=== PATIENT | female | born 1980 | race Caucasian/White ===

== ENCOUNTER 2023-02-07 15:50 | Emergency (ER) | payer BC, SELFPAY ==
[2023-02-07 17:01] VITALS: BP 124/77; PULSE 67; RESP 18; TEMP 36.3; O2SAT 100; BMI 21.0
--- NOTE | 2023-02-07 17:40 | ED.GENADULT ---
HPI - General Adult General Time Seen by Provider: 17:40 Date Seen: 02/07/23 Chief complaint: Unspecified Complaint, Adult Stated complaint: Possible bat bite, needs rabies vaccination Time Seen by Provider: 02/07/23 17:40 Source: patient, RN notes reviewed and old records reviewed Mode of arrival: ambulatory Limitations: no limitations History of Present Illness HPI narrative: Sailaja is a very pleasant 42-year-old female previously healthy with no current who comes to the emergency room after having been exposed to bats. Patient states that she woke this morning and she had 2 bat flying around in her room. She notes that she had no known bite and has not found any unusual puncture mcclain on her. She however notes that everything online states she should be vaccinated. Related Data Allergies Allergy/AdvReac Type Severity Reaction Status Date / Time Penicillins Allergy Verified 02/07/23 17:01 Sulfa (Sulfonamide Allergy Verified 02/07/23 17:01 Antibiotics) Exam Narrative: Exam Narrative: Very pleasant well-spoken female in no acute distress. No respiratory distress. Const: Vital Signs, click to edit/add: Vital Signs - 24 hr 02/07/23 17:01 Temperature 97.4 F L Pulse Rate [Pulse Oximeter] 67 Respiratory Rate 18 Blood Pressure [Ri ght Upper Arm] 124/77 Pulse Oximetry 100 Oxygen Delivery Me thod Room Air Documenting provider has reviewed patient's vital signs: yes Course Course Hospital Course: At this time do speak with ID specialist from the State who does agree patient will need to be vaccinated. Vital Signs Vital signs: Initial Vital Signs Temperature 97.4 F L 02/07/23 17:01 Temperature Source Temporal Artery Scan 02/07/23 17:01 Pulse Rate 67 02/07/23 17:01 Pulse Rhythm Regular 02/07/23 17:01 Respiratory Rate 18 02/07/23 17:01 Blood Pressure 124/77 02/07/23 17:01 Blood Pressure Mean 92 02/07/23 17:01 Blood Pressure Position Sitting 02/07/23 17:01 Pulse Oximetry 100 02/07/23 17:01 Oxygen Delivery Method Room Air 02/07/23 17:01 Vital Signs Temperature 97.4 F L 02/07/23 17:01 Pulse Rate 67 02/07/23 17:01 Respiratory Rate 18 02/07/23 17:01 Blood Pressure 124/77 02/07/23 17:01 Pulse Oximetry 100 02/07/23 17:01 Oxygen Delivery Method Room Air 02/07/23 17:01 Temperature 97.4 F L 02/07/23 17:01 Pulse Rate 67 02/07/23 17:01 Respiratory Rate 18 02/07/23 17:01 Blood Pressure 124/77 02/07/23 17:01 Pulse Oximetry 100 02/07/23 17:01 Oxygen Delivery Method Room Air 02/07/23 17:01 Medical Decision Making MDM Narrative Medical decision making narrative: 1. Bat exposure without known bite-at this time patient will be treated with rabies IG as well as the vaccine. Today's day 0 she will need to return on day 3, 7 and 14 for vaccination. 2. Disposition home at this time. Return for worsening symptoms. Discharge Plan Discharge Clinical Impression: Exposure to bat without known bite Patient Disposition: Home, Self-Care Condition: Unchanged Additional Instructions: Today's consider days 0. You received both rabies immunoglobulin as well as the vaccine today. You will need to return on the following schedule: Day 3-February 10 Day 7 -February 14 Day 14-February 21 Follow Up/Referrals: Generic,Amb Provider [Staff Physician] - Stand Alone Forms: MyHealth Info Instructions
[2023-02-07] MEDS: RABIES IMMUNE GLOBULIN 150 UNIT/ML INJ 1215 UNIT INFILTRATI (19:04)
== END 2023-02-07 19:00 | disposition home or self-care (01) ==
PROVIDERS: Emergency Provider Family Medicine
DX: Z20.3 Contact with and (suspected) exposure to rabies (principal); Z23 Encounter for immunization
CPT/HCPCS: 90377; 90471; 90675; 99283; 99284

== ENCOUNTER 2023-02-21 14:00 | Outpatient (RCR) | payer BC, SELFPAY ==
[2023-02-10 09:03] VITALS: BP 96/61; PULSE 89; RESP 18; TEMP 36.1; O2SAT 98
--- NOTE | 2023-02-14 17:57 | PC.NURSE ---
rabies vaccine given left deltoid, pt tolerated well, left ER ambulatory
[2023-02-21 14:11] VITALS: BP 101/74; PULSE 88; RESP 18; TEMP 37; O2SAT 97
== END 2023-02-21 14:01 | disposition home or self-care (01) ==
PROVIDERS: Visit Provider Family Medicine
DX: Z20.3 Contact with and (suspected) exposure to rabies (principal); Z29.14 Encounter for prophylactic rabies immune globulin; Z23 Encounter for immunization
CPT/HCPCS: 80307; 90471; 90675

== ENCOUNTER 2023-04-28 10:49 | Outpatient (CLI) | payer BC, SELFPAY ==
--- NOTE | 2023-04-28 10:45 | CRLHL7_ITS ---
For Patients: As a result of the Century Cures Act, medical imaging exams and procedure reports are released immediately into your electronic medical record. You may view this report before your referring provider. If you have questions, please contact your health care provider. BILATERAL SCREENING MAMMOGRAM WITH COMPUTER-AIDED DETECTION AND TOMOSYNTHESIS TECHNIQUE: CC and MLO views were obtained. These mammographic images have been obtained using full-field digital technique. These mammographic images were interpreted with the benefit of computer-aided detection. Breast Tomosynthesis was used in this interpretation. COMPARISON FILM: 09/19/21. FINDINGS: The breasts are extremely dense, which lowers the sensitivity of mammography IMPRESSION: There is no radiographic evidence for malignancy. ASSESSMENT: BI-RADS Category 2: Benign RECOMMENDATION: Routine screening mammogram in 1 year. A lay language report of this examination will be provided to the patient. Zafar Moncada M.D. Diagnostic Radiologist [email or web address] JETHRO/Dictated by: Zafar Moncada MD @ 04/28/2023 12:35:00 PM (Electronically Signed)
== END 2023-04-28 10:50 | disposition home or self-care (01) ==
LOC: MAMMO 10:50
PROVIDERS: Visit Provider Obstetrics & Gynecology
DX: Z12.31 Encounter for screening mammogram for malignant neoplasm of breast (principal); R92.2 Inconclusive mammogram
CPT/HCPCS: 77063; 77067

== ENCOUNTER 2024-03-16 15:34 | Outpatient (CLI) | payer BC, SELFPAY ==
--- OUTSIDE RECORDS SUMMARY | 2024-03-16 15:39 | XMS_ITS | Clinical Summary ---
Author Organization [place] Address [address] [place] [id number] Care Team Providers Care Instructional Technology Instructor Name Role Phone Clinic - [facility] Primary [facility] re Provider Allergies Active Allergy Reactions Criticality Noted Date Comments Penicillins Hives 05/25/2017 As a child Sulfa Antibiotics Hives 05/25/2017 As a child Medications Medication Sig Dispensed Refills Start Date End Date Status Multiple Vitamins-Minerals (MULTIVITAMIN ADULT) CHEW Take 2 chew tab by mouth daily Active Active Problems Problem Noted Date Diagnosed Date Family history of diabetes mellitus 05/25/2017 Overview: father; mid 60's; diet and exercise controlled.. Hx of streptococcal infection 05/25/2017 Overview: She is interested in throat culture to see if she is a strep carrier; she has tolerated Cephalosporins and wonders about a true PCN allergy delivery delivered 08/16/2015 Immunizations Name Administration Dates Next Due Influenza Vaccine >6 months,quad, PF 05/25/2017 MMR 10/19/2013 TDAP Vaccine (Adacel) 05/24/2015 Family History Medical History Relation Comments Diabetes Father pre diabetes, di et and exercise Hyperlipidemia Father Hypertension Father Lung Cancer Maternal Grandmother Gestational Diabetes Sister 1 Gestational Diabetes Sister 2 Relation Status Comments Father Maternal Grandfather Maternal Grandmother Mother Alive Paternal Grandfather Alive Paternal Grandmother Alive Sister 1 Sister 2 Social History Tobacco Use Types Packs/Day Years Used Date Smoking Tobacco: Never Smokeless Tobacco: Never Alcohol Use Standard Drinks/Week Comments Yes 0 (1 standard drink = 0.6 oz pur e alcohol) PHQ-2 Answer Date Recorded PHQ-2 Score 0 06/29/2018 Adolescent Education Answer Date Record ed Getting School Help Needed Not on file 04/07 Sex and Gender Information Value Date Recorded Sex Assigned at Female 11/17/2022 9:56 AM CDT Gender Identity Female 11/17/2022 9:56 AM CDT Sexual Orientation Straight 11/17/2022 9: 56 AM CDT Last Filed Vital Signs Vital Sign Reading Time Taken Comments Blood Pressure 98/60 01/05/2018 9:22 AM CDT Pulse 85 01/05/2018 9:22 AM CDT Temperature 36.7 ??C (98 ??F) 01/05/2018 9:22 AM CDT Respiratory Rate 18 01/05/2018 9:22 AM CDT Oxygen Saturation 97% 01/05/2018 9:22 AM CDT Inhaled Oxygen Concentration - - Weight 61.2 kg (135 lb) 01/05/2018 9:22 AM CDT Height 170.2 cm (5' 7) 01/05/2018 9:22 AM CDT Body Mass Index 21.14 01/05/2018 9:22 AM CDT Plan of Treatment Not on file Care Teams Instructional Technology Instructor Relationship Specialty Start Date End Date Clinic - [facility] [address] [address] [id number] PCP - General 05/25/17
--- OUTSIDE RECORDS SUMMARY | 2024-03-16 15:39 | XMS_ITS | Referral Summary ---
Author Organization [place] Address [address] [place] [address] Care Team Providers Care Analytics Director Name Role Phone Clinic - [facility] Primary Ca re Provider Allergies Active Allergy [...] 05/25/2017 MMR 10/19/2013 TDAP Vaccine (Adacel) 05/24/2015 Social History Tobacco Use Types Packs/Day Years [...] of Treatment Not on file Care Teams Analytics Director Relationship Specialty Start Date End Date Clinic - [facility] [address] [address] [id number] PCP - General 05/25/17
== END 2024-03-16 15:35 | disposition home or self-care (01) ==
PROVIDERS: PCP Family Medicine; Visit Provider Family Medicine
DX: M25.542 Pain in joints of left hand (principal); M25.541 Pain in joints of right hand; M25.59 Pain in other specified joint; R53.83 Other fatigue; Z82.61 Family history of arthritis; Z13.220 Encounter for screening for lipoid disorders; Z13.21 Encounter for screening for nutritional disorder; Z13.29 Encounter for screening for other suspected endocrine disorder
CPT/HCPCS: 80053; 80061; 82607; 84443; 86038; 86140; 86200; 86431; 86812

== ENCOUNTER 2024-05-05 09:17 | Outpatient (CLI) | payer BC, SELFPAY ==
--- NOTE | 2024-05-05 09:15 | CRLHL7_ITS ---
For Patients: As a result of the Century Cures Act, medical imaging exams and procedure reports are released immediately into your electronic medical record. You may view this report before your referring provider. If you have questions, please contact your health care provider. BILATERAL SCREENING MAMMOGRAM WITH COMPUTER-AIDED DETECTION AND TOMOSYNTHESIS TECHNIQUE: CC and MLO views were obtained. These mammographic images have been obtained using full-field digital technique. These mammographic images were interpreted with the benefit of computer-aided detection. Breast Tomosynthesis was used in this interpretation. COMPARISON FILM: 04/28/23, 09/19/21. FINDINGS: The breasts are heterogeneously dense, which may obscure small masses. IMPRESSION: There is no radiographic evidence for malignancy. ASSESSMENT: BI-RADS Category 2: Benign RECOMMENDATION: Routine screening mammogram in 1 year. A lay language report of this examination will be provided to the patient. Zafar Moncada M.D. Diagnostic Radiologist [email or web address] SP/Dictated by: Zafar Moncada MD @ 05/05/2024 12:53:00 PM (Electronically Signed)
--- OUTSIDE RECORDS SUMMARY | 2024-05-05 09:21 | XMS_ITS | Clinical Summary ---
Author Organization [place] Address [address] [place] [address]. [place] [address] Care Team Providers Care Diamond Cutter Name Role Phone Clinic - [facility] Primary Ca re Provider Allergies Active Allergy Reactions Criticality Noted Date Comments Penicillins Hives 05/25/2017 As a child Sulfa Antibiotics Hives 05/25/2017 As a child Medications Multiple Vitamins-Mineral s (MULTIVITAMIN ADULT) CHEW Take 2 chew tab by mouth daily Active Active Problems Problem Noted Date Diagnosed Date Family history of diabetes mellitus 05/25/2017 Overview (05/25/2017): father; mid 60's; diet and exercise controlled.. 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
--- OUTSIDE RECORDS SUMMARY | 2024-05-05 09:21 | XMS_ITS | Referral Summary ---
Author Organization [place] Address [address] [place] [address]. 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
== END 2024-05-05 09:18 | disposition home or self-care (01) ==
LOC: MAMMO 09:18
PROVIDERS: PCP Family Medicine; Visit Provider Obstetrics & Gynecology
DX: Z12.31 Encounter for screening mammogram for malignant neoplasm of breast (principal); R92.333 Mammographic heterogeneous density, bilateral breasts
CPT/HCPCS: 77063; 77067